=== PATIENT | female | born 1985 | race American Indian/Alaskan Native ===

== ENCOUNTER 2018-11-27 18:39 | Emergency (ER) | payer MEDICAID, OTHER ==
[2018-11-27 18:48] VITALS: BP 125/71
[2018-11-27] MEDS ORDERED: Sodium Chloride 0.9% 1,000 ML IV ONE (18:53)
[2018-11-27] MEDS ORDERED: diphenhydrAMINE 50 MG/ML SDV IVPUSH ONE (19:07)
[2018-11-27] MEDS ORDERED: Ketorolac 30 MG/ML SDV IVPUSH ONE (19:07)
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
[2018-11-27] MEDS ORDERED: Vancomycin 500 MG SDV IV ONE (19:11)
[2018-11-27 19:16] LABS: ANION GAP 15.7; CHLORIDE,CL 94 mmol/L (101-111); SODIUM,NA 134 mmol/L (135-145)
[2018-11-27] MEDS ORDERED: Potassium Chloride 10 MEQ in Premix Bag 1 BAG IV ONE (19:19)
[2018-11-27] MEDS ORDERED: Potassium Chloride 10 MEQ Tab.ER PO ONE (19:19)
[2018-11-27] MEDS ORDERED: Iopamidol 612 MG/ML 75 ML Bottle IVPUSH ONE (19:21)
[2018-11-27] MEDS ORDERED: HYDROmorphone 1 MG/ML Syringe IVPUSH ONE (21:06)
== END 2018-11-27 21:38 ==
LOC: DL.ED 18:39
DX: L02.211 Cutaneous abscess of abdominal wall (principal); L03.114 Cellulitis of left upper limb; F17.210 Nicotine dependence, cigarettes, uncomplicated; Z88.5 Allergy status to narcotic agent; Z86.14 Personal history of Methicillin resistant Staphylococcus aureus infection
CPT/HCPCS: 36415; 74177; 80053; 83605; 85025; 87040; 96361; 96365; 96366; 96368; 96375; 99284; A9270; J1170; J1200; J1885; J3370; J3480; J7030; Q9967

== ENCOUNTER 2018-12-20 16:23 | Emergency (ER) | payer MEDICAID ==
[2018-12-20 17:12] VITALS: BP 137/70
[2018-12-20] MEDS ORDERED: Mupirocin Oint 22 GM Tube TOP ONE (17:14)
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
== END 2018-12-20 17:57 | disposition home or self-care (01) ==
LOC: DL.ED 16:23
DX: Z48.817 Encounter for surgical aftercare following surgery on the skin and subcutaneous tissue (principal); B35.4 Tinea corporis
CPT/HCPCS: 99282; A9270-GY

== ENCOUNTER 2020-09-17 20:02 | Emergency (ER) | payer MEDICAID, OTHER ==
[2020-09-17 20:42] LABS: ANION GAP 14.4 mEq/L (7-13); CHLORIDE,CL 100 mmol/L (98-107); SODIUM,NA 138 mmol/L (136-145)
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
[2020-09-17 21:13] LABS: PTT,PARTIAL THROMBOPLSTIN TIME 23.5 SEC (22.0-34.0)
[2020-09-17] MEDS ORDERED: Ondansetron 4 MG/2 ML SDV IVPUSH ONE (21:36)
[2020-09-17] MEDS ORDERED: HYDROmorphone 1 MG/ML Syringe IVPUSH ONE (21:36)
[2020-09-17] MEDS ORDERED: Iopamidol 612 MG/ML 100 ML Bottle IVPUSH ONE (22:06)
== END 2020-09-17 22:48 ==
LOC: DL.ED 20:02
DX: S82.891B Other fracture of right lower leg, initial encounter for open fracture type I or II (principal); Z88.5 Allergy status to narcotic agent; Z88.0 Allergy status to penicillin; Z20.828 Contact with and (suspected) exposure to other viral communicable diseases; V48.5XXA Car driver injured in noncollision transport accident in traffic accident, initial encounter; Y92.410 Unspecified street and highway as the place of occurrence of the external cause
CPT/HCPCS: 36415; 70450; 71260; 72125; 73600; 74177; 80053; 80307; 84703; 85025; 85610; 85730; 86850; 86900; 86901; 87635; 99285; J1170; J2405; J3490; J7050; Q9967; U0002